=== PATIENT | female | born 1940 | race Caucasian/White ===

== ENCOUNTER → 2016-03-11 | Outpatient (CLI) | payer OTHER, MEDICARE ==
--- NOTE | 2016-03-11 16:44 | MA ---
Screening Digital Mammogram With iCAD Analysis Clinical Indications: Routine screening. The patient has had a benign left breast biopsy. Technique: Standard cephalocaudal and mediolateral oblique projections are obtained. This examination is processed by the iCAD computer aided detection system. Comparison: January 2015, March 2014, January 2014, January 2013, January 2012, January 2011, January 2010, January 2009 Breast density: Type B; Scattered fibroglandular densities. Findings: CAD was reviewed. No masses, suspicious calcifications or other signs of malignancy are see n. There has been no significant change in the appearance of either breast. Impression: Negative mammogram. BI-RADS 1. Recommendation: Routine mammographic screening in one year. [facility] will send a result letter to the patient. Negative mammography should not preclude additional workup of a clinically suspicious finding. The patient's information is entered into a reminder system with a target due date for her next mammo gram.
== END ==
LOC: FIMAGING 11:34
DX: Z12.31 Encounter for screening mammogram for malignant neoplasm of breast (principal)
CPT/HCPCS: G0202

== ENCOUNTER → 2017-03-16 | Outpatient (CLI) | payer OTHER, MEDICARE | LOC: FIMAGING 12:06 | PROVIDERS: ATTEND Internal Medicine | DX: Z12.31 Encounter for screening mammogram for malignant neoplasm of breast (principal) ==

== ENCOUNTER 2017-06-23 06:40 | Day surgery (SDC) | payer OTHER, MEDICARE ==
[2017-06-23] MEDS ORDERED: MIDAZOLAM 2 MG/2 ML VIAL IVP ONE (06:42)
[2017-06-23] MEDS ORDERED: NS 500 ML IV ONE (06:42)
[2017-06-23] MEDS ORDERED: fentaNYL 100 MCG/2 ML INJ IVP ONE (06:42)
[2017-06-23] MEDS ORDERED: BENZOCAINE UNIT DOSE SPRAY HURRICAINE MM ONE (06:42)
[2017-06-23] MEDS ORDERED: ATROPINE SULFATE 1 MG/10 ML SYR ONE (07:30)
--- NOTE | 2017-06-23 08:10 | PDHPUP ---
History & Physical Update H&P update statement: This history and physical update is based on an assessment of the patient which was completed after admission or registration (within 24 hours), but prior to the surgery/procedure. H&P update: H&P reviewed & patient examined, no change in patient's condition since H&P completed (Reviewed Dr. Walker's office note dated 06/12/2017)
--- NOTE | 2017-06-23 08:10 | PDANEPAE ---
ANE Past Medical History - Pulmonary History Hx Sleep Apnea: No - Endocrine History Hx Diabetes: Yes ANE Review of Systems Review of Systems: ANE Patient History - Allergies Allergies/Adverse Reactions: ciprofloxacin Allergy (Verified 06/01/13 19:47) Other-Enter Comments clindamycin Allergy (Verified 06/01/13 19:47) diltiazem Allergy (Verified 06/23/17 06:38) Other-Enter Comments levofloxacin Allergy (Verified 06/01/13 19:47) Rash nitrofurantoin [From Macrobid] Allergy (Verified 06/01/13 19:47) Unknown nitrofurantoin macrocrystalline [From Macrobid] Allergy (Verified 06/01/13 19:47 ) Unknown penicillin G Allergy (Verified 06/01/13 19:47) Unknown sulfadimethoxine [Sulfadimethoxine] Allergy (Verified 06/01/13 19:45) Rash - Home Medications Home Medications: Aspirin [Aspirin 81mg (*)] 81 mg PO HS 06/01/13 [Last Taken 05/30/13 20:00] Atorvastatin Calcium [Lipitor 20 mg (*)] 20 mg PO HS 06/01/13 [Last Taken 20:00] Calcium Carbonate [Jaau-Pmu-198] 500 mg PO HS 06/01/13 [Last Taken 05/30/13 20: 00] Cholecalciferol Vit D3 [Vitamin D3 (*)] 1,000 units PO HS 06/01/13 [Last Taken 05/30/13 20:00] Fluticasone Nasal [Flonase Nasal [place]] 1 sprays NASAL DAILY PRN 06/01/13 [Last Taken Unknown] Herbals/Supplements -Info Only 1 tab PO DAILY 06/01/13 [Last Taken 06/01/13] Levothyroxine [Synthroid 25 mcg (*)] 25 mcg PO DAILY06 06/01/13 [Last Taken 04/15 03:00] Multivitamins [Multivitamin (*)] 1 tab PO DAILY 06/01/13 [Last Taken 06/01/13 07 :00] [place]-3 Fatty Acids [Fish Oil 1000 mg (*)] 1,000 mg PO HS 06/01/13 [Last Taken 05/30/13 20:00] Valsartan [Diovan (*)] 160 mg PO HS 06/01/13 [Last Taken 05/31/13 20:00] Vitamin B Complex [SUPER B-100] 1 tab PO HS 06/01/13 [Last Taken 05/30/13 20:00] metFORMIN HCL [Glucophage 500 mg (*)] 500 mg PO BIDMEAL 06/01/13 [Last Taken 04/15 07:00] Carvedilol 06/23/17 [Last Taken Unknown] Cinnamon 06/23/17 [Last Taken Unknown] Furosemide 06/23/17 [Last Taken Unknown] Losartan Potassium [Cozaar] BID 06/23/17 [Last Taken Unknown] Pravastatin Sodium 06/23/17 [Last Taken Unknown] Turmeric Root Extract DAILY 06/23/17 [Last Taken Unknown] Ubidecarenone [Co Q-10] 06/23/17 [Last Taken Unknown] Vitamin D2 DAILY 06/23/17 [Last Taken Unknown] - Smoking Hx Smoking Status: Never smoked ANE Labs/Vital Signs - Vital Signs Height: 162.56 cm Weight: 73.482 kg ANE Physical Exam - Airway Neck exam: FROM Mallampati Score: Class 1 Mouth exam: dentures - Pulmonary Pulmonary: no respiratory distress, no rales or rhonchi, clear to auscultation - Cardiovascular Cardiovascular: regular rate and rhythym, no murmur, rub, or gallop - ASA Status ASA Status: III ANE Anesthesia Plan Anesthesia Plan: GA with mask
[2017-06-23] MEDS ORDERED: PROPOFOL 200 MG/20 ML VIAL ONE (08:16)
[2017-06-23] MEDS ORDERED: ALBUTEROL 3 ML DEYVIAL IH PRN (08:43)
[2017-06-23] MEDS ORDERED: NALOXONE HCL 0.4 MG/ML INJ IVP PRN (08:43)
--- NOTE | 2017-06-23 08:44 | POSTANESTH ---
Post Anesthetic Evaluation Cardiovascular Status: Normal, Stable, Similar to Pre-Op Cond Respiratory Status: Normal, Stable, Similar to Pre-op Cond. Level of Consciousness/Mental Status: Can Participate in Eval Pain Control: Adequate, Prn Tx Ordered Nausea/Vomiting Control: Adequate, Prn Tx Ordered Complications Possibly Related to Anesthesia: None Noted
--- NOTE | 2017-06-25 08:45 | ECHO ---
[email or web address] [address] [address] Main: [phone] Fax: Transesophageal Echocardiography Name: OLGA LIDIA DILL MR#: [id number] Study Date: 06/23/2017 Study Time: 07:59 AM Date of : 1940 Age: 76 year(s) Height: ( ) Weight: ( ) BSA: Gender: Female Examination: SERENA Indication: Pre Watchman Image Quality: Contrast: Requested by: Vivian Wallis Heart Rate: Rhythm: Normal sinus rhythm BP: / Procedure Staff Bathing Suit Maker: Franco Vega RDCS Reading Physician: Vivian Wallis MD Requesting Provider: Anish Walker SERENA Exam Details Conclusions: Normal global systolic LV function. No thrombus in left appendage. The 0 degrees measurment is 3.1cm x 2.0cm, The 60 degree measurement at 43 degrees measured 2.5 cm x 1.5 cm. The 90 degree measurement is 2.2cm x 1.4 cm and the 135 degree measurement is 1.9 cm x 1.1 cm. The right atrium is normal in size. Mild aortic valve regurgitation is present. Olga Lidia Dill has an elevated CZSJJ6LYOB score of 5 and is a poor candidate for usp anticoagulation therapy due to bleeding issues. The patient will be referred for Watchman device evaluation in the the [facility]. Measurements: Chambers Valvular Assessment AV/MV Valvular Assessment TV/PV Normal Normal Normal Name Value Range Name Value Range Name Value Range AR (PHT): 610 ms ( - ) Additional Measurements: Valvular Assessment AV/MV Name Value AR Vmax: 4.07 cm/s Patient: OLGA LIDIA DILL Study Date: 06/23/2017 Page 1 of 2 07:59 AM Findings: Left Ventricle: Normal global systolic LV function. Left Atrial Appendage: No thrombus in left appendage. The 0 degrees measurment is 3.1cm x 2.0cm, The 60 degree measurement at 43 degrees measured 2.5 cm x 1.5 cm. The 90 degree measurement is 2.2cm x 1.4 cm and the 135 degree measurement is 1.9 cm x 1.1 cm. Right Atrium: The right atrium is normal in size. Mitral Valve: The mitral valve is normal in appearance and function. Trivial mitral valve regurgitation. Aortic Valve: The aortic valve is tri-leaflet. Mild aortic valve regurgitation is present. Tricuspid Valve: The tricuspid valve appears normal. Mild tricuspid regurgitation is present. Pulmonic Valve: The pulmonic valve is normal in appearance and function. Aorta: The ascending Ao measures 3.6 m/s There is mild calcification on the descending Ao.. Pericardium: No pericardial effusion. l1n (No Signature Object) Patient: OLGA LIDIA DILL Study Date: 06/23/2017 Page 2 of 2 07:59 AM [id number]
== END 2017-06-23 11:30 | disposition home or self-care (01) ==
LOC: FCATH 06:40
PROVIDERS: ATTEND Internal Medicine Cardiovascular Disease
DX: I48.91 Unspecified atrial fibrillation (principal); E78.2 Mixed hyperlipidemia; I10 Essential (primary) hypertension; E11.9 Type 2 diabetes mellitus without complications
CPT/HCPCS: J0461; J2704

== ENCOUNTER 2017-09-07 06:11 | Inpatient (IN) | payer OTHER, MEDICARE ==
--- NOTE | 2017-09-07 06:19 | PDHPUP ---
History & Physical Update H&P update statement: This history and physical update is based on an assessment of the patient which was completed after admission or registration (within 24 hours), but prior to the surgery/procedure. H&P update: H&P reviewed & patient examined, no change in patient's condition since H&P completed
[2017-09-07] MEDS ORDERED: ceFAZolin 2 GM/DEXTROSE 100 ML IV ONE (06:20)
--- NOTE | 2017-09-07 06:20 | PDPROPOC ---
Sedation Plan of Care Sedation Plan of Care: mental status noted, patient educated of risks, benefits , alternatives, patient can tolerate sedation ASA Classification: ASA 2 Planned drugs: other Mallampati Score: Class 2 Mallampati Reference Image: Patient passed 3-3-2 rule?: Yes
[2017-09-07] MEDS ORDERED: NS 1,000 ML IV ONE (06:31)
--- NOTE | 2017-09-07 06:42 | CPEKG ---
Heart Rate: 58 RR Interval: 1034 P-R Interval: 152 QRSD Interval: 92 QT Interval: 464 QTC Interval: 456 P [place]: 57 QRS [place]: 41 T Wave [place]: 12 EKG Severity - ABNORMAL ECG - EKG Impression: SINUS RHYTHM EKG Impression: PROBABLE LVH WITH SECONDARY REPOL ABNRM Electronically Signed By: John Morel 10-Sep-2017 21:09:48
[2017-09-07] MEDS ORDERED: HEPARIN 10,000 UNIT/10 ML MDV (1,000 UNIT/ML) ONE ×2 (06:43→07:29)
[2017-09-07] MEDS ORDERED: HEPARIN/DEXTROSE 25,000 UNIT/500 ML BAG ONE (06:44)
[2017-09-07] MEDS ORDERED: IOPAMIDOL (ISOVUE 370) 100 ML BTL IV ONE (06:44)
[2017-09-07] MEDS ORDERED: MIDAZOLAM 2 MG/2 ML VIAL ONE (07:16)
[2017-09-07] MEDS ORDERED: MIDAZOLAM 2 MG/2 ML VIAL IVP ONE (07:16)
--- NOTE | 2017-09-07 07:18 | PDANEPAE ---
ANE History of Present Illness cath ANE Past Medical History - Cardiovascular History Hx Hypertension: Yes Hx Arrhythmias: Yes Hx Chest Pain: No Hx Coronary Artery / Peripheral Vascular Disease: Yes Hx CHF / Valvular Disease: No Hx Palpitations: No - Pulmonary History Hx COPD: No Hx Asthma/Reactive Airway Disease: No Hx Recent Upper Respiratory Infection: No Hx Oxygen in Use at Home: No Hx Sleep Apnea: No - Neurologic History Hx Cerebrovascular Accident: No Hx Seizures: No Hx Dementia: No - Endocrine History Hx Diabetes: Yes Hypothyroid: No Hyperthyroid: No - Renal History Hx Renal Disorders: No - Liver History Hx Hepatic Disorders: No - Neurological & Psychiatric Hx Hx Neurological and Psychiatric Disorders: No ANE Review of Systems Review of Systems: - Exercise capacity Exercise capacity: >=4 METS ANE Patient History - Allergies Allergies/Adverse Reactions: ciprofloxacin Allergy (Verified 09/04/17 09:38) Hives clindamycin Allergy (Verified 09/04/17 09:38) Hives diltiazem Allergy (Verified 06/23/17 06:38) Other-Enter Comments levofloxacin Allergy (Verified 06/01/13 19:47) Rash nitrofurantoin [From Macrobid] Allergy (Verified 09/04/17 09:38) Hives Sulfa (Sulfonamide Antibiotics) Allergy (Verified 09/04/17 09:38) Rash - Home Medications Home medications: home medication list seen and reviewed Home Medications: Aspirin [Aspirin 81mg (*)] 81 mg PO HS 06/01/13 [Last Taken 05/30/13 20:00] Atorvastatin Calcium [Lipitor 20 mg (*)] 20 mg PO HS 06/01/13 [Last Taken 20:00] Herbals/Supplements -Info Only 1 ea PO DAILY #0 06/01/13 [Last Taken 06/01/13] Levothyroxine [Synthroid 25 mcg (*)] 25 mcg PO DAILY06 06/01/13 [Last Taken 04/15 03:00] Cholecalciferol Vit D3 [Vitamin D3 (*)] 1,000 units PO DAILY 06/23/17 [Last Taken Unknown] Acetaminophen [Tylenol 325mg (*)] 325 mg PO DAILY PRN 09/04/17 [Last Taken Unknown] Aspirin [Aspirin 81mg (*)] 81 mg PO HS 09/04/17 [Last Taken Unknown] Carvedilol [Coreg (*)] 6.25 mg PO BID 09/04/17 [Last Taken Unknown] Gabapentin [Neurontin 300 MG (*)] 300 mg PO HS 09/04/17 [Last Taken Unknown] Losartan Potassium [Cozaar 50 mg (*)] 50 mg PO BID 09/04/17 [Last Taken Unknown] Magnesium Oxide [Magnesium Oxide 400 mg (*)] 400 mg PO HS 09/04/17 [Last Taken Unknown] metFORMIN HCL [Glucophage 1000 mg] 1,000 mg PO BID 09/04/17 [Last Taken Unknown] - Smoking Hx Smoking Status: Never smoked ANE Labs/Vital Signs - Vital Signs Height: 160 cm Weight: 72.6 kg ANE Physical Exam - Airway Mallampati Score: Class 2 Mouth exam: normal dental/mouth exam - Pulmonary Pulmonary: no respiratory distress - Cardiovascular Cardiovascular: irregularly irregular - ASA Status ASA Status: III ANE Anesthesia Plan Anesthesia Plan: general endotracheal anesthesia
[2017-09-07] MEDS ORDERED: LIDOCAINE 2% 5 ML SDV ONE (07:20)
[2017-09-07] MEDS ORDERED: DEXAMETHASONE 4 MG/ML VIAL ONE (07:20)
[2017-09-07] MEDS ORDERED: ROCURONIUM 50 MG/5 ML VIAL ONE (07:21)
[2017-09-07] MEDS ORDERED: PROPOFOL 200 MG/20 ML VIAL ONE (07:22)
[2017-09-07] MEDS ORDERED: fentaNYL 100 MCG/2 ML INJ ONE (07:22)
--- NOTE | 2017-09-07 07:48 | PDGENHP ---
History & Physical Chief Complaint: bleeding/PAF History of Present Illness: 76 yo female, elevated CHADs-vasc score, hx of bleeding on AC tx, PAF admitted for watchman Pertinent Past, Social, Family History: gi bleed. PAF Relevant Physical Exam: rrr s1 s2. cta b. soft
[2017-09-07] MEDS ORDERED: NALOXONE HCL 0.4 MG/ML INJ IVP PRN (07:58)
[2017-09-07] MEDS ORDERED: ONDANSETRON 4 MG/2 ML VIAL IVP PRN ×2 (07:58→09:11)
[2017-09-07] MEDS ORDERED: LR 500 ML IV PRN (07:58)
[2017-09-07] MEDS ORDERED: ALBUTEROL 3 ML DEYVIAL IH PRN (07:58)
[2017-09-07] MEDS ORDERED: fentaNYL 100 MCG/2 ML INJ IVP PRN (07:58)
[2017-09-07] MEDS ORDERED: ONDANSETRON 4 MG/2 ML VIAL ONE (08:22)
[2017-09-07] MEDS ORDERED: SUGAMMADEX SODIUM 200 MG/2 ML VIAL IVP ONE (08:54)
[2017-09-07] MEDS ORDERED: PROTAMINE SULFATE 50 MG/5 ML VIAL IVP ONE (08:57)
[2017-09-07] MEDS ORDERED: OXYCODONE/APAP 5/325 TAB PO PRN (09:11)
[2017-09-07] MEDS ORDERED: NITROGLYCERIN 0.4 MG BTL SL PRN (09:11)
[2017-09-07] MEDS ORDERED: TEMAZEPAM 15 MG CAP PO PRN (09:11)
[2017-09-07] MEDS ORDERED: HYDROCODONE/APAP 5/325 TAB PO PRN (09:11)
[2017-09-07] MEDS ORDERED: LORazepam 2 MG/ML INJ IVP PRN (09:11)
[2017-09-07] MEDS ORDERED: ATROPINE SULFATE 1 MG/10 ML SYR IVP PRN (09:11)
--- NOTE | 2017-09-07 09:18 | POSTANESTH ---
Post Anesthetic Evaluation Cardiovascular Status: Normal, Stable Respiratory Status: Normal, Stable Level of Consciousness/Mental Status: Can Participate in Eval Pain Control: Adequate, Prn Tx Ordered Nausea/Vomiting Control: Adequate, Prn Tx Ordered Complications Possibly Related to Anesthesia: None Noted
--- NOTE | 2017-09-07 09:47 | CPIP ---
[f rep st] INVASIVE CARDIAC PROCEDURE DATE OF PROCEDURE: 09/07/2017 INDICATION FOR PROCEDURE: Paroxysmal atrial fibrillation, gastrointestinal bleeding. CO-SURGEONS: Dr. Vivian Wallis, Dr. Juan Alberto Muñiz. PROCEDURE: 1. 8-Chinese sheath right common vein upsized to a 14-Chinese Watchman sheath. 2. Transeptal access with a [place] catheter catheter and wire. 3. Placement of [employer] Watchman device 27 mm via the transfemoral route. HISTORY: Briefly, this is a 76-year-old female with elevated CHADS-VASc score, history of bleeding o n anticoagulation therapy and paroxysmal atrial fibrillation who was consented for Watchman placement . DESCRIPTION OF PROCEDURE: After informed consent was obtained, the patient was brought to [facility] where the patient was electively intubated. SERENA was performed by Dr. Vivian Wallis. The patient was administ ered 2 g Ancef prior to the procedure. An 8-Chinese sheath was placed in right femoral vein. Transep luli access was then obtained with a [place] catheter and wire under SERENA guidance. The pigtail cathete r was then advanced into the left atrial appendage and verified angiographically. Of note, the patie nt's prior angiogram images showed an appendage that was measuring only 1.3 to 1.6. However, on yojana ographic imaging, the appendage appeared much, much larger. We advanced the sheath into the appendag e. The patient had been administered 7000 heparin IV prior to any sheath insertion into the left atr ial appendage. The ACT was appropriately over 300. We initially chose a 24-device and deployed this , however, post deployment, the device was quite proximal and had very low compression rates. We dec ided that we will need to retrieve this device and sheath was performed and we decided to proceed with placement of a larger 27 mm device. The 27 mm device was deployed successfully. Post d eployment, there was excellent compression rates noted with compression rates range from 15% to 25%. There was no will Watchman leak noted. The tug test was performed which showed no movement of the d evice. At this time, the device was deployed. The sheath was pulled back. The right groin was clos ed with a pursestring suture. The patient tolerated the procedure well with no complications. IMPRESSION: Successful placement of [employer] 26 mm Watchman via the transfemoral route. PLAN: The patient will be admitted to the PCU, DC right groin suture in 3 hours' time. The patient will be started on anticoagulation therapy for 45 days for a followup SERENA. /[id number]/MODL
--- NOTE | 2017-09-07 10:10 | CPEKG ---
Heart Rate: 55 RR Interval: 1091 P-R Interval: 152 QRSD Interval: 92 QT Interval: 480 QTC Interval: 460 P [place]: 57 QRS [place]: 56 T Wave [place]: 268 EKG Severity - ABNORMAL ECG - EKG Impression: SINUS RHYTHM EKG Impression: PROBABLE LVH WITH SECONDARY REPOL ABNRM Electronically Signed By: John Morel 10-Sep-2017 21:09:38
--- NOTE | 2017-09-07 11:32 | PDMN ---
Medical Necessity Medical necessity: [facility] IP only surgery; cpt 09164 Watchman L Atrial Appendage Closure Device placement
[2017-09-08 04:00] LABS: PLATELET COUNT 216 10^3/uL (150-400)
[2017-09-08] MEDS ORDERED: ACETAMINOPHEN 325 MG TAB PO PRN (06:09)
[2017-09-08] MEDS ORDERED: LEVOTHYROXINE 25 MCG TAB PO SCH (06:15)
--- NOTE | 2017-09-08 06:29 | PDCARPN ---
Cardiology Progress Note Chief Complaint: AF/bleeding Assessment/Plan: Assessment: s/p watchman Plan: 09/08/17 06:28 doing well d/c home today 45 day AC tx Subjective: doing well Reviewed/Discussed With: multidisciplinary team Time Spent with Patient: greater than 25 minutes Time Spent with Patient: Greater than 25 minutes spent on this patients care, greater than 50% of time spent counseling, educating, and coordinating care regarding the above mentioned plan. Objective: Vital Signs (8 Hrs) Temp Pulse Resp BP Pulse Ox 09/08/17 03:48 37.1 C 91 16 167/92 H 92 09/07/17 23:25 36.7 C 67 18 140/73 H 95 Intake/Output (24 Hrs) 09/07/17 09/08/17 09/09/17 05:59 05:59 05:59 Intake Total 1700 Output Total 650 Balance 1050 Intake: Oral (ml) 700 IV Intake (ml) 1000 Output: Urine (ml) 650 Toilet 650 Other: Weight 76.7 kg Result Diagrams: 09/08/17 03:24 09/08/17 03:24 - Physical Exam Constitutional: healthy appearing Eyes: PERRL Ears, Nose, Mouth, Throat: moist mucous membranes Cardiovascular: regular rate and rhythm Peripheral Pulses: 1+: femoral (R), femoral (L) Respiratory: clear to auscultate bilat Gastrointestinal: normoactive bowel sounds Genitourinary: no suprapubic tenderness Skin: no rashes Musculoskeletal: no muscular tenderness Neurologic: AAOx3 ICD10 Worksheet Patient Problems: Problems Problem Status Onset Arterial embolism and thrombosis, upper extremity Acute
--- NOTE | 2017-09-08 06:49 | GDS ---
[f rep st] DISCHARGE SUMMARY DIAGNOSIS: Watchman placement. HISTORY AND HOSPITAL COURSE: Briefly, this is a 76-year-old female with a history of distal emboliza tion, paroxysmal atrial fibrillation, inability to tolerate long-term anticoagulation therapy and massimo vated CHADS-VASc score, who was admitted electively for Watchman placement. The patient underwent figueroa ccessful Watchman placement with a 27 mm device. Postprocedure, the patient has done very well. Min imal drop in hemoglobin today. The patient has been ambulating in the halls without problems. The lucho day will be discharged home today with her home medications, in addition to anticoagulation therap y for 45 days. The patient will follow up with us in the office in 1 week's time. /[id number]/MODL
[2017-09-08] MEDS: metFORMIN HCL 500 MG TAB PO SCH ×2 (06:56→06:57)
[2017-09-08 07:40] VITALS: BP 156/86
[2017-09-08] MEDS ORDERED: CHOLECALCIFEROL VIT D3 1,000 UNITS TAB PO SCH (09:00)
[2017-09-08] MEDS ORDERED: CARVEDILOL 6.25 MG TAB PO SCH (09:00)
[2017-09-08] MEDS ORDERED: LOSARTAN POTASSIUM 50 MG TAB PO SCH (09:00)
[2017-09-08] MEDS ORDERED: APIXABAN 2.5 MG TAB PO SCH ×2 (09:00→09:45)
--- NOTE | 2017-09-08 09:06 | CPEKG ---
Heart Rate: 58 RR Interval: 1034 P-R Interval: 156 QRSD Interval: 92 QT Interval: 436 QTC Interval: 429 P [place]: 65 QRS [place]: 57 T Wave [place]: 238 EKG Severity - ABNORMAL ECG - EKG Impression: SINUS RHYTHM EKG Impression: PROBABLE LVH WITH SECONDARY REPOL ABNRM Electronically Signed By: John Morel 10-Sep-2017 21:09:29
--- NOTE | 2017-09-08 09:42 | ASMTLACE ---
LACE Length of stay for Answers: 1 day current admission Acuity / Level of Answers: Yes Care: Did the patient have an inpatient admission? Comorbidities - select Answers: Coronary Artery Disease all that apply Diabetes (uncontrolled or controlled) Other Notes: HTN # of Emergency department Answers: 0 visits in the last 6 months Score: 8 Date Signed: 09/08/2017 09:42 AM Electronically Signed By:Nabila Kwon RN
--- NOTE | 2017-09-08 09:45 | ASMTCMCOM ---
CM Note CM Note Notes: Chart reviewed. Patient s/p watchman. Medically cleared for discharge to home . No needs identified. CM available should needs arise. Plan: Home independent. Date Signed: 09/08/2017 09:44 AM Electronically Signed By:Nabila Kwon RN
[2017-09-08] MEDS ORDERED: ATORVASTATIN CALCIUM 20 MG TAB PO SCH (21:00)
[2017-09-08] MEDS ORDERED: MAGNESIUM OXIDE 400 MG TAB PO SCH (21:00)
[2017-09-08] MEDS ORDERED: GABAPENTIN 300 MG CAP PO SCH (21:00)
--- NOTE | 2017-09-14 20:28 | ECHO ---
[email or web address] [address] [address] Main: [phone] Fax: Transesophageal Echocardiography Name: NEGRA CHENG MR#: [id number] Study Date: 09/07/2017 Study Time: 07:38 AM Date of : 1940 Age: 76 year(s) Height: ( ) Weight: ( ) BSA: Gender: Female Examination: SERENA Indication: Watchman Procedure Image Quality: Contrast: Requested by: Anish Walker Heart Rate: Rhythm: BP: / Procedure Staff Enrollment Representative: Franco Vega RDCS Reading Physician: Vivian Wallis MD Requesting Provider: Anish Walker SERENA Exam Details Conclusions: Normal global systolic LV function. No thrombus in left appendage. There was successful deployment of a 27mm Watchman device into the left atrial appendage. There was 14-19% compression with this device. The device is well seated. Mild mitral valve regurgitation is present. Mild aortic valve regurgitation is present. Measurements: Chambers Valvular Assessment AV/MV Valvular Assessment TV/PV Normal Normal Normal Name Value Range Name Value Range Name Value Range Additional Measurements: Findings: Left Ventricle: Normal global systolic LV function. No regional wall motion abnormality. Left Atrial Appendage: No thrombus in left appendage. There was successful deployment of a 27mm Watchman device into the left atrial appendage. There was 14-19% compression with this device. The device is well seated. Mitral Valve: The mitral valve is normal in appearance. Mild mitral valve regurgitation is present. Patient: NEGRA CHENG Study Date: 09/07/2017 Page 1 of 2 07:38 AM Aortic Valve: The aortic valve is normal in appearance and function. Mild aortic valve regurgitation is present. Tricuspid Valve: The tricuspid valve is normal in appearance and function. Pulmonic Valve: The pulmonic valve is normal in appearance and function. Aorta: The aorta is normal. Pericardium: No pericardial effusion. Exam Comments: l1n (No Signature Object) Patient: NEGRA CHENG Study Date: 09/07/2017 Page 2 of 2 07:38 AM [id number]
== END 2017-09-08 10:40 | disposition home or self-care (01) | DRG 274 ==
LOC: FCATH 06:11 → F2W 09:11
PROVIDERS: ADMIT Internal Medicine Cardiovascular Disease; ATTEND Internal Medicine Cardiovascular Disease
PROC: 02L73DK Occlusion of Left Atrial Appendage with Intraluminal Device, Percutaneous Approach (ICD-10-PCS; principal; 2017-09-07)
DX: I48.0 Paroxysmal atrial fibrillation (principal); Z00.6 Encounter for examination for normal comparison and control in clinical research program; Z87.19 Personal history of other diseases of the digestive system; I10 Essential (primary) hypertension
CPT/HCPCS: C1769; C1893; J0690; J1100; J1644; J2250; J2405; J2704; J2720; J3010; Q9967

== ENCOUNTER 2017-10-21 | Day surgery (SDC) | payer OTHER, MEDICARE | END 2017-10-21 11:45 | disposition home or self-care (01) | PROC: B246ZZ4 Ultrasonography of Right and Left Heart, Transesophageal (ICD-10-PCS; principal; 2017-10-21) | DX: I48.91 Unspecified atrial fibrillation (principal); I35.1 Nonrheumatic aortic (valve) insufficiency | CPT/HCPCS: J2704 ==

== ENCOUNTER → 2018-03-17 | Outpatient (CLI) | payer OTHER, MEDICARE | LOC: FIMAGING 11:27 | PROVIDERS: ATTEND Internal Medicine | DX: Z12.31 Encounter for screening mammogram for malignant neoplasm of breast (principal) ==